=== PATIENT | male | born 1980 | race Caucasian/White ===

== ENCOUNTER 2019-09-12 01:13 | Emergency (ER) | payer OTHER ==
[~2019-09-12] VITALS: Ht 188 cm; Wt 83.9 kg
[2019-09-12 01:30] VITALS: BP 157/99
--- NOTE | 2019-09-12 01:30 | NUR ---
ED Nurse Note: Pt walked into ED for c/o back and neck pain s/p fall at work. Pt states he was at work around 2345 last night when he slipped on the wet pavement and fell landing on his back and hit his head. Pt does not report LOC that he is aware of. Pt reports pain on R side of back and neck. Pt is aaox4, no cardiac or respiratory distress noted.
[2019-09-12] MEDS ORDERED: Hydromorphone 0.5mg/0.5ml inj ONE (02:18)
[2019-09-12] MEDS ORDERED: Methocarbamol 750mg tab ORAL ONE (02:19)
[2019-09-12] MEDS ORDERED: Ketorolac 30mg Inj ONE (02:19)
[2019-09-12] MEDS ORDERED: Acetaminophen 500mg (ES) tab ORAL ONE (02:19)
--- NOTE | 2019-09-12 02:30 | NUR ---
ED Nurse Note: System down at this time, unable to scan medications. Pt given Toradol 30mg IM, Hydromorphone 0.5mg IM, Robaxin 750mg PO, Tylenol 1000mg PO, zofran 4mg PO, Decadron 12mg PO and Lidoderm patch 5% as ordered by FRANCHESKA Reyes. 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
[2019-09-12] MEDS ORDERED: NAPROXEN250 MG ORAL (03:41)
[2019-09-12] MEDS ORDERED: LIDODERM700 M1 TOPIC (03:41)
[2019-09-12] MEDS ORDERED: ROBAXIN-750750 MG PO (03:41)
[2019-09-12] MEDS ORDERED: TYLENOL325 MG ORAL (03:41)
--- NOTE | 2019-09-12 03:41 | Emergency Room Report ---
History of Present Illness General Chief Complaint: Multiple Trauma/Fall Source: Patient Present Illness HPI 38-year-old male works at [employer] presents with acute slip and fall, fell on his back hit his head, no LOC he endorses some nausea no vomiting he endorses posterior head pain, no aggravating leaving factors severity is moderate, intermittent , patient also endorses right lower back pain sharp in nature aggravated with movement alleviated with rest severity is moderate no bowel bladder retention/incontinence no perineal numbness, Allergies: Coded Allergies: No Known Allergies (Unverified , 09/12/19) Patient History Past Medical History: see triage record Reviewed Nursing Documentation: PMH: Agreed; PSxH: Agreed Nursing Documentation-PMH Past Medical History: No Stated History Hx Gastrointestinal Problems: Yes - prilosec Hx Neurological Problems: Yes - ADD; inflammation od the back; PREP Review of Systems All Other Systems: negative except mentioned in HPI Physical Exam Vital Signs Date Time Temp Pulse Resp B/P (MAP) Pulse Ox O2 Delivery O2 Flow Rate FiO2 09/12/19 01:17 98.2 85 16 157/99 (118) 96 Room Air Sp02 EP Interpretation: reviewed, normal General Appearance: well appearing, no apparent distress, alert Head: normocephalic, atraumatic Eyes: bilateral eye PERRL, bilateral eye EOMI ENT: uvula midline, moist mucus membranes Neck: supple, thyroid normal, no bony tend, supple/symm/no masses, tender lateral Respiratory: lungs clear, no respiratory distress, no retraction, no accessory muscle use Cardiovascular #1: normal peripheral pulses, regular rate, rhythm, no edema, no gallop, no murmur Gastrointestinal: non tender, soft, no guarding, no rebound Musculoskeletal: other - No midline tenderness no step-offs of the back, tenderness to palpation right lower back laterally paraspinally, 5-5 strength bilaterally ankle flexion extension, knee flexion extension, hip extension flexion, abduction and adduction of the hips, sensation grossly intact bilaterally lower extremities, patient is able to ambulate Neurologic: alert, oriented x3 Psychiatric: mood/affect normal Skin: no rash, warm/dry Medical Decision Making Diagnostic Impression: Primary Impression: Fall Qualified Codes: W19.XXXA - Unspecified fall, initial encounter Additional Impressions: Back pain Qualified Codes: M54.5 - Low back pain Contusion of muscle ER Course The patient presents with acute onset of back pain after fall earlier today. Clinically this patient can be ruled out for serious pathology given there is a completely normal neurological exam, no history of IV drug use, and no history of bowel or bladder incontinence, no perianal numbness/tingling, no constipation or urinary retention. Once the patient's pain was adequately controlled, the patient was able to ambulate and be discharged in stable condition with anticipatory guidance provided. CT/MRI/US Diagnostic Results CT/MRI/US Diagnostic Results : Impression Preliminary Findings Only See Final Report For Complete Findings CT HEAD: No ICH, mass effect or edema. No evidence of acute cortical stroke. No midline shift or hydrocephalus. Visualized sinuses and mastoid air cells are clear. No acute calvarial fracture. Radiologist: Cosme Gustafson M.D. Study ready at 04:08 and initial results transmitted at 04:22 Preliminary Findings Only See Final Report For Complete Findings CT C SPINE: No evidence of acute or healing fracture or malalignment. Degenerative changes of spine without critical central canal stenosis.. No airway narrowing, mass or adenopathy. No apical pneumothorax. Preliminary Findings Only See Final Report For Complete Findings CT L SPINE: No acute fracture or malalignment is identified. There is a chronic healed unilateral spondylolysis on the left at L4. There is mild degenerative disc disease at L4-5 and L5-S1 with mild generalized disc bulging and osteophytosis. This produces moderate to severe bilateral neural foraminal stenosis L4-5 as well as mild trefoil type central spinal stenosis. At L5-S1 there is severe right neural foraminal stenosis secondary to generalized disc bulging and osteophytosis. No focal disc protrusions are identified. The sacrum and visualized pelvis appear unremarkable. Radiologist: Tomi Aguirre MD Study ready at 04:32 and initial results transmitted at 04:37 Last Vital Signs Date Time Temp Pulse Resp B/P (MAP) Pulse Ox O2 Delivery O2 Flow Rate FiO2 09/12/19 01:30 98.2 85 16 157/99 96 Room Air Disposition: HOME, SELF-CARE Condition: Stable Scripts Lidocaine Patch* (Lidoderm Patch*) 1 Each Adh..patch 1 PATCH TOPIC DAILY PRN for For Pain, #30 PATCH Patch(es) may remain in place for up to 12 hours in any 24-hour period. Prov: Alexander Reyes MD 09/12/19 Acetaminophen (Tylenol) 325 Mg Tablet 650 MG ORAL Q6H PRN for Prn Pain/Headache/Temp > 101, #60 TAB 0 Refills Prov: Alexander Reyes MD 09/12/19 Methocarbamol* (ROBAXIN-750*) 750 Mg Tablet 750 MG PO QID PRN for muscle spasm, #28 TAB 0 Refills Prov: Alexander Reyes MD 09/12/19 Naproxen* (NAPROSYN*) 250 Mg Tablet 250 MG ORAL TWICE A DAY PRN for For Pain, #60 TAB 0 Refills Prov: Alexander Reyes MD 09/12/19 Referrals: [facility] Kristopher Arora [facility] Departure Forms: Return to Work Return to Work Date: Sep 19, 2019 Work Restrictions: No Heavy Lifting, No Prolonged Standing, Desk Work Only Patient Instructions: Back Pain, Adult, [id number], Contusion, [id number], Head Injury, Adult, [id number], Low Back Strain With Rehab-SportsMed Additional Instructions: The patient was provided with discharge instructions, notified to follow-up with a primary care doctor and or specialist in the next 24-48 hours, and to return to the ED if they have worsening of their symptoms. Please note that this report is being documented using [employer] technology. This can lead to erroneous entry secondary to incorrect interpretation by the dictating instrument. Alexander Reyes MD Sep 12, 2019 03:41
[2019-09-12 04:50] VITALS: BP 145/82
--- NOTE | 2019-09-12 04:50 | NUR ---
ER DISCHARGE NOTE: Patient is cleared to be discharged per ERMD, pt is aox4, on room air, with stable vital signs. pt was given dc and prescription instructions, pt was able to verbalize understanding, pt id band removed. pt is able to ambulate with steady gait. pt took all belongings.
--- NOTE | 2019-09-12 08:54 | Diagnostic Imaging Report ---
Indications: Lower back pain after falling Technique: Spiral acquisitions obtained through the lumbar spine. Multiplanar reconstructions were generated. No IV contrast utilized. Total dose length product 1108 mGycm. CTDIvol(s) 23 mGy. Dose reduction achieved using automated exposure control Comparison: none Findings: Bony alignment is normal. No acute fractures. No dislocations. Vertebral body heights are preserved. There is mild degenerative disc narrowing at L4 and mild circumferential annular bulge. This does not result in any significant spinal stenosis, does result in minimal compromise of the bilateral neural foramina. At L5-S1, there is degenerative disc narrowing. Posterior osteophytes are noted, do not appear to significantly narrow the spinal canal. They do result in mild to moderate compromise of the right neural foramen and mild compromise of the left neural foramen. Included extraspinal soft tissues are unremarkable. Impression: No acute bony trauma Degenerative changes, as described This agrees with the preliminary interpretation provided overnight by [facility]. The CT scanner at [facility] is accredited by the [employer] and the scans are performed using protocols designed to limit radiation exposure to as low as reasonably achievable to attain images of sufficient resolution adequate for diagnostic evaluation.
--- NOTE | 2019-09-12 09:00 | Diagnostic Imaging Report ---
Indication: Trauma, neck pain after falling Technique: Spiral acquisitions obtained through the cervical spine. No IV contrast utilized. Multiplanar reconstructions were generated. Total dose length product 191 mGycm. CTDIvol(s) 6 mGy. Dose reduction achieved using automated exposure control. Comparison: none Findings: The bony alignment is normal. Vertebral body heights are preserved. No acute fractures. No dislocations. There is mild degenerative change of the anterior atlantoaxial joint. There is degenerative disc narrowing at C5-6. There is mild facet arthrosis. There are posterior osteophytes which do not significantly narrow the spinal canal. However, uncovertebral hypertrophy and degenerative spondylosis results in severe bilateral neural foraminal stenosis at this level. There is mild degenerative disc narrowing at C6-7. There is mild posterior disc bulge which does not significantly compromise the spinal canal. There is severe right and mild left neural foraminal stenosis. Uncinate hypertrophy. At the remaining disc levels, no significant disc bulge or protrusion, spinal stenosis, or neural foraminal narrowing. There is maxillary sinus mucosal thickening on both sides. Included extra spinal soft tissues are otherwise unremarkable Impression: No acute bony trauma Degenerative changes as detailed on a level by level basis above. Sinus disease The CT scanner at [facility] is accredited by the [employer] and the scans are performed using protocols designed to limit radiation exposure to as low as reasonably achievable to attain images of sufficient resolution adequate for diagnostic evaluation.
--- NOTE | 2019-09-12 09:01 | Diagnostic Imaging Report ---
Indications: Head pain after falling Technique: Spiral acquisitions obtained through the brain. Angled axial and coronal 5 x 5 mm slices were reconstructed. Total dose length product 1457 mGycm. CTDI vol(s) 62 mGy. Dose reduction achieved using automated exposure control Comparison: None. Findings: No acute intracranial hemorrhage or edema. No mass effect nor midline shift. Normal size ventricles and extra axial CSF spaces. Normal haro-white differentiation. Intact calvarium. Visualized orbits and sinuses are unremarkable. Impression: Negative This agrees with the preliminary interpretation provided overnight by [facility]. The CT scanner at [facility] is accredited by the [employer] and the scans are performed using protocols designed to limit radiation exposure to as low as reasonably achievable to attain images of sufficient resolution adequate for diagnostic evaluation.
== END 2019-09-12 04:50 | disposition home or self-care (01) ==
LOC: EMR 02:00
DX: S30.0XXA Contusion of lower back and pelvis, initial encounter (principal); M54.5 Low back pain; F98.8 Other specified behavioral and emotional disorders with onset usually occurring in childhood and adolescence; W01.10XA Fall on same level from slipping, tripping and stumbling with subsequent striking against unspecified object, initial encounter; Y93.9 Activity, unspecified; Y92.9 Unspecified place or not applicable
CPT/HCPCS: 70450; 72125; 72131; 99284; J1170; J1885; J8540